=== PATIENT | male | born 1970 | race African-American/Black ===

== ENCOUNTER 2020-06-28 15:12 | Emergency (ER) | payer SELFPAY ==
--- NOTE | 2020-06-28 15:19 | PDOC ---
Rapid Medical Evaluation Time Seen by Provider: 06/28/20 15:14 Medical Evaluation: 06/28/20 15:15 I have performed a brief in-person evaluation of this patient. CC: epistaxis. Seen at and [facility]. PE: [id number]. Pale conjuctiva. Orders: Labs Patient to proceed to ED for further evaluation. Discharge Disposition - Diagnosis Epistaxis - Referrals - Patient Instructions - Post Discharge Activity
[2020-06-28] MEDS ORDERED: SODIUM CHLORIDE 1,000 ML IV STA (15:20)
[2020-06-28 15:31] VITALS: BP 133/87; BMI 29.8
[2020-06-28 15:49] LABS: BASO % 0.8 % (0-2.0); EOS % 1.9 % (0-4.5); HEMATOCRIT 33.1 % (35.4-49); LYMPH % 28.4 % (8-40); MCH 32.8 pg (25.7-33.7); MCHC 33.2 g/dl (32.0-35.9); MEAN CELL VOLUME 98.6 fl (80-96); MONO % 8.3 % (3.8-10.2); NEUT % 60.6 % (42.8-82.8); PLATELET COUNT 300 K/MM3 (134-434); RBC 3.36 M/mm3 (4.00-5.60); WHITE BLOOD COUNT 8.4 K/mm3 (4.0-10.0)
[2020-06-28 16:05] LABS: INR 0.92 (0.83-1.09); PROTHROMBIN TIME (PATIENT) 10.8 SEC (9.7-13.0)
[2020-06-28 16:18] LABS: ALBUMIN 3.6 g/dl (3.4-5.0); ALK PHOS 71 U/L (45-117); ANION GAP 7 MMOL/L (8-16); BILIRUBIN,TOTAL 0.2 mg/dL (0.2-1); BLOOD UREA NITROGEN 16.6 mg/dL (7-18); CALCIUM 8.6 mg/dL (8.5-10.1); CHLORIDE 106 mmol/L (98-107); CO2 28 mmol/L (21-32); CREATININE 1.2 mg/dL (0.55-1.3); GLUCOSE,RANDOM 133 mg/dL (74-106); POTASSIUM 4.4 mmol/L (3.5-5.1); SGOT/AST 41 U/L (15-37); SGPT/ALT 31 U/L (13-61); SODIUM 142 mmol/L (136-145); TOT PROT 6.9 g/dl (6.4-8.2)
--- NOTE | 2020-06-28 16:23 | PDOC ---
History of Present Illness - General Chief Complaint: Syncope/Near Syncope Stated Complaint: NOSE BLEED Time Seen by Provider: 06/28/20 15:14 - History of Present Illness Initial Comments: 06/28/20 16:46 50 yo male with no pmh presenting to ED after having rhino rocket placed in left nose earlier today. Pt explains that he has been having nose bleeding for the last four days. Pt had about four episodes of nose bleeds two days ago where he had profuse amount of blood and clots coming out of nose and mouth. Pt explains two days prior he had syncopal event where he was laying on the couch and he passed out for about ten minutes and was shaking bilaterally for ten minutes according to his girl friend. Pt also explains after that pt went to [facility] where they evaluated him with EKG, CXR and labs. Pt was discharged with no rhino rocket due to no active bleeding. Pt then for the next two days had one instants of bleeding. Pt today had also one instance of bleeding and decided ot go to [facility]. Pt at [facility] was given rhino rocket in left nose. Pt then was referred to [facility] for ENT evaluation. Pt currently denies lightheadedness, chest pain, shortness of breath, visual disturbances, abdominal pain, n/v/d/c. Pt also denies trauma to nose, picking of nose, any inhalation of substances through nose, or any recent prior nose bleeds. Pt does explain he did have a few instances of dark stool for two days prior to arrival but now back to normal stool. PMH: Denies Meds: denies PSH: denies Allergies: denies Social: 30 pack history; socially drinks; denies drugs Past History - Medical History Allergies/Adverse Reactions: Allergies Allergy/AdvReac Type Severity Reaction Status Date / Time No Known Allergies Allergy Verified 06/28/20 15:31 COPD: No - Psycho-Social/Smoking History Smoking History: Never smoked Review of Systems - Review of Systems Comments:: 06/28/20 16:52 GENERAL/CONSTITUTIONAL: No fever or chills. No weakness. HEAD, EYES, EARS, NOSE AND THROAT: No change in vision. No ear pain or discharge. No sore throat. Epistaxis CARDIOVASCULAR: No chest pain or shortness of breath RESPIRATORY: No cough, wheezing, or hemoptysis. GASTROINTESTINAL: No nausea, vomiting, diarrhea or constipation. GENITOURINARY: No dysuria, frequency, or change in urination. MUSCULOSKELETAL: No joint or muscle swelling or pain. No neck or back pain. SKIN: No rash NEUROLOGIC: No headache, vertigo, loss of consciousness, or change in strength/sensation. ENDOCRINE: No increased thirst. No abnormal weight change HEMATOLOGIC/LYMPHATIC: No anemia, easy bleeding, or history of blood clots. ALLERGIC/IMMUNOLOGIC: No hives or skin allergy. *Physical Exam - Vital Signs Last Vital Signs Temp Pulse Resp BP Pulse Ox 110 H 18 133/87 100 06/28/20 15:57 06/28/20 15:28 06/28/20 15:28 06/28/20 15:57 - Physical Exam 06/28/20 16:53 GENERAL: Awake, alert, and fully oriented, in no acute distress HEAD: No signs of trauma, normocephalic, atraumatic EYES: PERRLA, EOMI, sclera anicteric, conjunctiva clear ENT: Auricles normal inspection, hearing grossly normal, oropharynx clear without exudates or blood. Moist mucosa. Left nostril with rhino rocket soaked with blood. Right nare has dry blood with no active bleeding septum midline. NECK: Normal ROM, supple, no lymphadenopathy, JVD, or masses LUNGS: No distress, speaks full sentences, clear to auscultation bilaterally HEART: Tachycardic and regular rhythm, normal S1 and S2, no murmurs, rubs or gallops, peripheral pulses normal and equal bilaterally. ABDOMEN: Soft, nontender, normoactive bowel sounds. No guarding, no rebound. No masses EXTREMITIES : Normal inspection, Normal range of motion, no edema. No clubbing or cyanosis. NEUROLOGICAL: Cranial nerves II through XII grossly intact. Normal speech, no focal sensorimotor deficits SKIN: Warm, Dry, normal turgor, no rashes or lesions noted ED Treatment Course - LABORATORY CBC & Chemistry Diagram: 06/28/20 15:28 06/28/20 15:28 - ADDITIONAL ORDERS Additional order review: Laboratory Results 06/28/20 06/28/20 15:28 15:28 PT with INR 10.80 INR 0.92 Sodium 142 Potassium 4.4 Chloride 106 Carbon Dioxide 28 Anion Gap 7 L BUN 16.6 Creatinine 1.2 Est GFR (CKD-EPI)AfAm 80.66 Est GFR (CKD-EPI)NonAf 69.59 Random Glucose 133 H Calcium 8.6 Total Bilirubin 0.2 AST 41 H ALT 31 Alkaline Phosphatase 71 Creatine Kinase 144 Troponin I < 0.02 Total Protein 6.9 Albumin 3.6 06/28/20 15:28 RBC 3.36 L MCV 98.6 H MCHC 33.2 RDW 13.0 MPV 8.0 Neutrophils % 60.6 Lymphocytes % 28.4 Monocytes % 8.3 Eosinophils % 1.9 Basophils % 0.8 - Medications Given in the ED: ED Medications Discontinued Medications Generic Name Dose Route Start Last Admin Trade Name Freq PRN Reason Stop Dose Admin Sodium Chloride 1,000 mls @ 1,000 mls/hr 06/28/20 15:20 06/28/20 16:13 Normal Saline - IV 06/28/20 16:19 1,000 mls/hr ASDIR STA Administration Medical Decision Making - Medical Decision Making 06/28/20 16:23 50 yo male with no pmh presenting to ED after left sided rhino rocket placement at [facility] earlier today. Pt refered here for anemia check and ENT follow up. We do not have ENT here so decided to transfer pt. Pt of right mind and AAOx3 and capable to make own decisions. Pt wants to leave AMA so he could drive his own car to his own ENT in [facility] in [place] Dr. Acevedo. Pt was notified of risk of having increase bleeding, another syncopal event, infection, coma, , etc. Pt understood and still wanted to leave. Discharge - Discharge Information Problems reviewed: Yes Clinical Impression/Diagnosis: Epistaxis Condition: Good Disposition: AGAINST MEDICAL ADVICE - Follow up/Referral - Patient Discharge Instructions Patient Printed Discharge Instructions: DI for Syncope in Adults (Fainting), Nosebleed Additional Instructions: You came into the ED for nose bleed. At the ED we did labs and wanted to transfer you for further evaluation by an EN T. You wanted to leave AMA because you wanted to see your own ENT. You understood the risk of increased bleeding, infection, coma, paralysis, and , etc. Please follow up with an ENT as soon as possible If you have any of the following please return: - shortness of breath - chest pain - fevers or chills Any emergent symptoms please call for medical help right away. - Post Discharge Activity
--- NOTE | 2020-06-28 16:26 | PDOC ---
Attending Attestation - Resident Resident Name: Zane Colon - ED Attending Attestation I have performed the following: I have examined & evaluated the patient, The case was reviewed & discussed with the resident, I agree w/resident's findings & plan, Exceptions are as noted - HPI HPI: 06/28/20 16:26 50 years old with no significant past medical history presents with nosebleed for the last 3 days. Large volume of blood 3 days ago went to [facility] was evaluated had a syncopal episode at the time thought to be secondary to blood loss today had a Rhino Rocket placed presented to the ED after arriving to the ED found that he has an appointment with his ENT would like to proceed to his ENT appointment no complaints at this time no headache dizziness lightheadedness chest pain shortness of breath nausea vomiting or diarrhea - Physicial Exam PE: 06/28/20 16:27 Vitals: Triage Vital signs reviewed General Appearance: No acute distress, well nourished well developed, Head: Atraumatic, Nose: Rhino Rocket in place in left nostri Cardiac: Regular rate and rhythym, no murmurs, no rubs, no gallops, Lungs: Clear to auscultation bilateral, good air movement bilaterally, Abdomen: Soft, non distended, normal bowel sounds, non tender to palpation Extremities: Full range of motion to all extremities, no cyanosis, clubbing, or edema Skin: Warm and dry, no rashes or lesions, no rash, no petechiae Psych: Normal mood, normal affect - Medical Decision Making 06/28/20 16:[address]. Patient with syncopal episode secondary to blood loss the other day does not want to stay for additional work-up here in the ED as he has an appointment with his ENT doctor which she would like to proceed to Given history of syncope will have patient AMA Patient understands risks and benefits of leaving will proceed directly to his ENTs office Findings, need for follow-up and strict return instruction discussed with patient. Discharge - Discharge Information Problems reviewed: Yes Clinical Impression/Diagnosis: Epistaxis - Admission No - Follow up/Referral - Patient Discharge Instructions - Post Discharge Activity
[2020-06-28 16:42] VITALS: PULSE 98
--- NOTE | 2020-06-29 09:23 | EKG ---
Test Reason : Blood Pressure : / mmHG Vent. Rate : 107 BPM Atrial Rate : 107 BPM P-R Int : 134 ms QRS Dur : 076 ms QT Int : 324 ms P-R-T Axes : 056 047 058 degrees QTc Int : 432 ms SINUS TACHYCARDIA OTHERWISE NORMAL ECG NO PREVIOUS ECGS AVAILABLE Confirmed by Asael Sadler MD ([id number]) on 06/29/2020 9:22:52 AM Referred By: Confirmed By:Asael Sadler MD
== END 2020-06-28 16:42 | disposition left against medical advice (07) ==
LOC: JER 15:12
PROC: 3E0337Z Introduction of Electrolytic and Water Balance Substance into Peripheral Vein, Percutaneous Approach (ICD-10-PCS; principal; 2020-06-28)
DX: R04.0 Epistaxis (principal)
CPT/HCPCS: 36415; 80053; 82550; 84484; 85025; 85610; 86850; 86900; 86901; 93005; 93010; 99284-25